=== PATIENT | male | born 1970 | race Caucasian/White ===

== ENCOUNTER → 2024-02-12 | Outpatient (REF) | payer OTHER | LOC: M LAB REF 11:36 | PROVIDERS: ATTEND Internal Medicine | DX: R53.83 Other fatigue (principal) ==

== ENCOUNTER → 2025-02-16 | Outpatient (REF) | payer OTHER | LOC: M SFHCDERM 08:01 | PROVIDERS: ATTEND Dermatology | DX: D48.5 Neoplasm of uncertain behavior of skin (principal) ==